=== PATIENT | male | born 1950 | race Caucasian/White ===

== ENCOUNTER 2024-07-08 06:24 | Day surgery (SDC) | payer OTHER, SELFPAY ==
[2024-06-07 09:11] LABS: Hematocrit 38.1 % (39.0-52.0); Hemoglobin 13.6 g/dL (13.0-18.0); Mean Corp Hgb Conc. 35.7 g/dL (33.0-37.0); Mean Corpuscular Hgb 30.8 pg (27.0-31.0); Mean Corpuscular Volume 86.2 fL (80.0-94.0); Mean Platelet Volume 9.7 fL (7.4-10.4); Platelet Count 220 10^3/uL (130-400); Red Blood Cell Count 4.42 10^6/uL (4.70-6.10); Red Cell Dist. Width 13.2 % (11.5-14.5); White Blood Cell Count 5.5 10^3/uL (4.8-10.8)
[2024-06-07 09:12] VITALS: BMI 28.4
[2024-06-07 09:30] LABS: ALT (SGPT) 38 U/L (0-50); AST (SGOT) 44 U/L (17-59); Albumin 4.2 g/dl (3.5-5.0); Alkaline Phosphatase 66 U/L (38-126); Blood Urea Nitrogen 19 mg/dl (9-20); Calcium 9.1 mg/dl (8.4-10.2); Carbon Dioxide 27 mmol/L (22-30); Chloride 100 mmol/L (98-107); Estimated Creatinine Clearance 60 ml/min; Glucose 105 mg/dl (70-99); Potassium 3.6 mmol/L (3.5-5.1); Sodium 140 mmol/L (135-145); Total Bilirubin 0.9 mg/dl (0.2-1.3); Total Protein 7.1 g/dl (6.3-8.2); eGFR > 60.00
[2024-06-07 12:20] LABS: Glycohemoglobin (HgbA1c) 5.5 % (4.0-5.6)
--- NOTE | 2024-06-25 15:43 | VNURNOTE ---
Patient is scheduled for an elective L ARAVIND on 07/08/24- he is a same day patient with Dr Qureshi. Spoke with patient prior to surgery. Introduced role of [facility] Liaison. Patient reports that he lives with his in a rancher home.
There are 2 steps to enter.
He has a cane and rolling walker.
He had VN services after his prior THR but was not same day surgery.
PCP is Dr Lexi Lund
Discussed [facility] joint protocol and post surgical plans.
Reviewed that he will have VN services initially and will then start outpatient PT.
Patient selects [facility]N for his home care needs and will go to [facility] for outpatient PT. Scheduled for 07/11.
Patient is in agreement with plan and states that his will be home with him. Advised to bring RW with him day of surgery. Referral placed in [facility].
Plan: [facility] per [facility] joint protocol then outpt PT on 07/11
[2024-07-02 08:53] VITALS: BMI 28.4
[2024-07-08] VITALS (11 sets, daily range): BP systolic 99–119; BP diastolic 58–81; PULSE 77; O2SAT 94
[2024-07-08] MEDS: TYLENOL 650 MG PO (09:22)
[2024-07-08] MEDS: CELEBREX 200 MG PO (09:22)
--- NOTE | 2024-07-08 12:15 | W.DS.TRANS ---
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
-
Discharge Instructions:
Sleep Apnea Risk Intermediate
Discharge Diagnosis/Procedures Left hip replacement
Diet As tolerated
Activity As tolerated,With Walker
Driving Restrictions No driving
Bathing Restrictions OK to Shower
Other Services PT
Wound Care Aquacel dressing in place 7 days then incision
open to air if no drainage (if drainage light
dressing until it resolves)
Instructions:
Stand-Alone Forms: SDS Total Hip and Knee D/C
Changes to Home Medications: Yes
Discharge Medications:
DC Medications w/original date entered in [facility]
ezetimibe 10 mg tablet (Zetia) 10 mg PO DAILY 07/02/24
hydrochlorothiazide 25 mg tablet 25 mg PO DAILY 07/02/24
mupirocin 2 % topical ointment 1 applic topical BID 07/02/24
nifedipine 60 mg tablet,extended release 60 mg PO DAILY 07/02/24
potassium chloride 10 mEq tablet,extended release 10 meq PO DAILY 07/02/24
rosuvastatin 40 mg tablet 40 mg PO DAILY 07/02/24
acetaminophen 500 mg capsule 1,000 mg (2 x 500 mg) PO Q6H PRN Pain #60 caps 07/08/24
aspirin 325 mg tablet 325 mg PO DAILY #30 tabs 07/08/24
aspirin 81 mg tablet,delayed release 81 mg PO DAILY 07/08/24
celecoxib 100 mg capsule (Celebrex) 100 mg PO BID #30 caps 07/08/24
dexamethasone 4 mg tablet 4 mg PO BID #7 tabs 07/08/24
docusate sodium 100 mg capsule (Colace) 100 mg PO BID #14 caps 07/08/24
ondansetron 4 mg disintegrating tablet 4 mg PO Q8H #14 tabs 07/08/24
oxycodone 5 mg tablet 5 mg PO Q6H PRN Pain #30 tabs 07/08/24
sennosides 8.6 mg tablet (Senokot) 8.6 mg PO BID PRN Constipation #14 tabs 07/08/24
Home Medication Changes
aspirin 325 mg tablet 325 mg PO DAILY #30 tabs 07/08/24
celecoxib 100 mg capsule (Celebrex) 100 mg PO BID #30 caps 07/08/24
dexamethasone 4 mg tablet 4 mg PO BID #7 tabs 07/08/24
docusate sodium 100 mg capsule (Colace) 100 mg PO BID #14 caps 07/08/24
ondansetron 4 mg disintegrating tablet 4 mg PO Q8H #14 tabs 07/08/24
oxycodone 5 mg tablet 5 mg PO Q6H PRN Pain #30 tabs 07/08/24
sennosides 8.6 mg tablet (Senokot) 8.6 mg PO BID PRN Constipation #14 tabs 07/08/24
Pending Results: No
[2024-07-08] MEDS: ANCEF 5 IV (14:26)
[2024-07-08] MEDS: CYKLOKAPRON 650 MG PO (15:03)
== END 2024-07-08 15:10 | disposition home or self-care (01) ==
LOC: SDS 06:24
PROVIDERS: ATTENDING PHYSICIAN Specialist; FAMILY PHYSICIAN Nurse Practitioner Adult Health; REFERRING PHYSICIAN Internal Medicine Cardiovascular Disease
DX: M16.12 Unilateral primary osteoarthritis, left hip (principal); I10 Essential (primary) hypertension; I35.0 Nonrheumatic aortic (valve) stenosis; E78.5 Hyperlipidemia, unspecified; M47.816 Spondylosis without myelopathy or radiculopathy, lumbar region; M17.12 Unilateral primary osteoarthritis, left knee; Z98.890 Other specified postprocedural states
CPT/HCPCS: 27130; 36415; 73502; 80053; 83036; 85027; 87070; 97162; C1713; C1776

== ENCOUNTER → 2025-01-10 09:07 | Outpatient (REF) | payer OTHER, SELFPAY | LOC: RAD 09:07 | PROVIDERS: ATTENDING PHYSICIAN Student in an Organized Health Care Education/Training Program; FAMILY PHYSICIAN Nurse Practitioner Adult Health | DX: I35.0 Nonrheumatic aortic (valve) stenosis (principal) | CPT/HCPCS: 74174; 75572; Q9967 ==

== ENCOUNTER 2025-01-17 07:32 | Day surgery (SDC) | payer OTHER, SELFPAY ==
[2025-01-17] VITALS (11 sets, daily range): BP systolic 103–123; BP diastolic 68–78; BMI 25.8
[2025-01-17] MEDS: NSS 218 ML IV (08:15)
--- NOTE | 2025-01-17 09:30 | ITS.CL.PN ---
[employer]ementer [employer]older - Procedure Note
Procedure
Procedure Note:
CARDIAC CATHETERIZATION REPORT
Date of Procedure: 01/17/2025
Referring: Dr. Joseph Walls DO
Indication: severe symptomatic aortic valve stenosis
PROCEDURE: coronary angiography
ACCESS: 6F right radial artery (closure: radial band)
CATHETERS
1. 6F JR4
2. 6F JL4
MODERATE SEDATION: 25 minutes of moderate sedation was utilized. An independent adjunct faculty for medical terminology was present to assist with and help manage the patient's level of consciousness and physiologic status.
HEMODYNAMIC DATA
AO 101/65 (mean 83) mmHg
CORONARY ANGIOGRAPHY
Dominance: left
LM: Large, normal
LAD: Large vessel giving rise to a moderate caliber branching diagonal and several small distal diagonal branches before wrapping around the apex. There are trivial luminal irregularities only.
LCx: Large vessel giving rise to a small OM1, large OM2, moderate caliber LPL branch, and moderate caliber LPDA. There are trivial luminal irregularities only.
RCA: Moderate caliber nondominant vessel with minimal disease.
RADIATION: dose 363 mGy; DAP 20.1 Gy*cm2; fluoroscopy time 3.7 min
CONCLUSION: coronary angiography demonstrates trivial luminal irregularities only in a left dominant system
RECOMMENDATION: proceed with workup for aortic valve replacement
Copy to: Dr. Joseph Walls DO (chief inspector); Lexi Anaya NP (PCP)
Signed: Dean Arreaga MD, PhD
== END 2025-01-17 12:20 | disposition home or self-care (01) ==
LOC: CATH 07:32
PROVIDERS: ATTENDING PHYSICIAN Student in an Organized Health Care Education/Training Program; FAMILY PHYSICIAN Nurse Practitioner Adult Health; OTHER PHYSICIAN Internal Medicine Cardiovascular Disease
DX: I35.0 Nonrheumatic aortic (valve) stenosis (principal); I10 Essential (primary) hypertension; E78.5 Hyperlipidemia, unspecified; Z79.82 Long term (current) use of aspirin
CPT/HCPCS: 99152; 99153; 93454; C1894; Q9967

== ENCOUNTER 2025-02-18 05:31 | Inpatient (IN) | payer OTHER, SELFPAY ==
[2025-02-10 08:31] VITALS: BMI 27.9
[2025-02-10 09:04] LABS: Urine Character Clear (Clear)
[2025-02-10 09:04] LABS: Hematocrit 40.7 % (39.0-52.0); Hemoglobin 14.1 g/dL (13.0-18.0); Mean Corp Hgb Conc. 34.6 g/dL (33.0-37.0); Mean Corpuscular Volume 91.1 fL (80.0-94.0); Nucleated Red Blood Cells % 0 % (-); Platelet Count 191 10^3/uL (130-400); Red Cell Dist. Width 13.7 % (11.5-14.5)
[2025-02-10 09:14] LABS: INR 0.96; PT 13.1 Sec (11.4-14.6)
[2025-02-10 09:15] LABS: Urine Red Blood Cell 0-2 /HPF (0-2); Urine Squamous Cell 0-2 /LPF (Few); Urine White Cell 0-2 /HPF (0-5)
[2025-02-10 09:52] LABS: ALT (SGPT) 41 U/L (0-50); AST (SGOT) 43 U/L (17-59); Albumin 4.4 g/dl (3.5-5.0); Alkaline Phosphatase 67 U/L (38-126); Blood Urea Nitrogen 23 mg/dl (9-20); Calcium 9.2 mg/dl (8.4-10.2); Carbon Dioxide 26 mmol/L (22-30); Chloride 106 mmol/L (98-107); Estimated Creatinine Clearance 62 ml/min; Glucose 116 mg/dl (70-99); Potassium 4.0 mmol/L (3.5-5.1); Sodium 139 mmol/L (135-145); Total Protein 7.7 g/dl (6.3-8.2); eGFR > 60.00
--- NOTE | 2025-02-10 10:10 | CM ---
Chart reviewed. Met with the patient in PAT. Reviewed preoperative and postoperative instructions and restrictions, along with showering guidelines. Gave patient TAVR Book. Patient is agreeable to a home visit by CT Transitional RN. Patient is
independent of ADLS, retired Executive Business Coach, lives with his in a 1 [address], 2 KIMMIE, 0 DME. Plan is for the patient to return home with CT Transitional RN.
[2025-02-10 10:19] LABS: Glycohemoglobin (HgbA1c) 5.5 % (4.0-5.6)
[2025-02-18] VITALS (16 sets, daily range): BP systolic 100–147; BP diastolic 62–107; BMI 27.2
--- NOTE | 2025-02-18 06:26 | W.CVOR.SURPR ---
CVOR Surgeon Immed Pre Op
-
I have examined this patient prior to performance of the scheduled procedure.
The patient's condition is unchanged from the time of the dictated/written History and
Physical and the patient is able to undergo the scheduled procedure.
--- NOTE | 2025-02-18 07:08 | PTCARENOTE ---
Pt. rec'd intro room 2257 from home for scheduled TAVR this AM, pt. AAOx3, VSS, NSR on the monitor. Pt. clipped and CHG wiped as per protocol, #20 G IV started in left wrist, ABO 2 drawn and sent. Verified with pt. that he showered x2 at home with
CHG soap, has been NPO since midnight, and that he took Aspirin 81 mg prior to arrival. Admission questions completed and med rec updated. Pt taken to laboratory equipment cleaner at 0630.
--- NOTE | 2025-02-18 09:06 | CM ---
pt in OR today, cm following.
--- NOTE | 2025-02-18 09:16 | W.IMMPOSTOP ---
Surgical Immed Post Op Note
-
[id number]
STRUCTURAL HEART PROCEDURE NOTE: TAVR
Preoperative Dx:
[id number] symptomatic aortic stenosis (P/M: 64/37, Top Lift Scourer 4.0m/s, NANCY 0.8)
Moderate aortic insufficiency
Mild MR
DJD/lumbar disk disease
Chronic lower back pain
BPH w/ urinary frequency
OA
Postoperative Dx:
Same
Procedures:
1) L RA access w/ U/S, tactile, and fluoroscopic guidance, micropuncture technique, 6Fr sheath placement
2) Pigtail placement
3) L CFV access w/ U/S and fluoroscopic guidance, long 6Fr sheath placement, placement of temporary RV pacing wire w/ threshold testing
4) L RIVET HEATER GAS access w/ U/S, tactile, and fluoroscopic guidance, seldinger technique, 5Fr sheath placement for arterial pressure monitoring
5) R RIVET HEATER GAS access w/ U/S, tactile, and fluoroscopic guidance, seldinger technique, 8Fr dilator placement
6) Perclose placement x 2 into R RIVET HEATER GAS w/ subsequent placement of 8Fr sheath
7) Limited aortography w/ confirmation of confirmation of co-planar valve deployment angles
8) Lunderquist wire purchase via R RIVET HEATER GAS access
9) Placement of Padron E-sheath via R RIVET HEATER GAS access - systemic heparinization
10) Wire purchase across stenotic AV (AL-1, soft-tip straight, LVEDP assessment (20mmHg), extra-stiff wire)
11) R TF TAVR w/ placement of 26mm AKIKO 3, RESILIA valve - aborted x 1 w/ pacing wire repositioning
12) Completion aortography
13) Completion TTE (no AI/PVL, mean gradient 5mmHg, no pericardial effusions, normal ventricular function)
14) Placement of long pigtail catheter in abdominal aorta via L RA access
15) Removal of [id number]-uhvcil/Padron E-sheath w/ R RIVET HEATER GAS mgmt w/ perclose sutures x 2; manual pressure
16) Completion R ileofemoral angiography
17) Removal of temporary pacing wire
18) Removal of L RIVET HEATER GAS 5Fr sheath w/ mgmt w/ 6Fr angioseal, manual pressure
19) Removal of L CFV 6Fr sheath w/ mgmt w/ manual pressure - protamine administration
20) Removal of L RA 6Fr sheath w/ mgmt w/ radial band placement
W[employer] Instructor:
Dr. Dean Arreaga
Cardiac Surgeon:
Dr. Naldo Moreno
Anesthesia:
MAC w/ local to B/L groins and L wrist
Implants:
Padron [employer]iences, 26mm AKIKO 3 RESILIA, SN [id number]
Perclose x 2 to R RIVET HEATER GAS
6Fr angioseal to L RIVET HEATER GAS
Complications:
None
Cath Data:
Start: 0748hrs, Deploy: 0843hrs, End: 0912hrs
FT: 18.7min, mGy: 505, DAP: 40.1, Contrast: 72mL
Post-TTE: No AI/PVL, mean gradient 5mmHg
Condition:
Stable/guarded to recovery
--- NOTE | 2025-02-18 09:21 | ITS.CL.PN ---
[employer] Cell [employer]er - Procedure Note
Procedure
Procedure Note:
TRANSCATHETER AORTIC VALVE REPLACEMENT REPORT
Date of Procedure: 02/18/2025
Referring: Dr. Joseph Walls
Indication: symptomatic severe aortic valve stenosis
Operators: Dean Arreaga MD, PhD (interventional cardiology); Dr. Naldo Moreno MD (CT surgery)
Anesthesia: conscious sedation provided by the anesthesia staff
PROCEDURE: transfemoral, transcatheter aortic valve replacement with a Padron Maria De Jesus S3 Ultra Resilia 26 mm valve
ACCESS:
1. 6F left femoral vein (closure: manual hemostasis) - Ultrasound was utilized for vascular access. The vessel was visualized under ultrasound and noted to be patent. An image of the vessel was stored permanently in the patient's medical record.
Under direct ultrasound guidance, vascular access was obtained using a modified Seldinger technique and a 6 [place] Verdean sheath was placed.
2. 6F left common femoral artery (closure: Angioseal) - Ultrasound was utilized for vascular access. The vessel was visualized under ultrasound and noted to be patent. An image of the vessel was stored permanently in the patient's medical record.
Under direct ultrasound guidance, vascular access was obtained using a modified Seldinger technique and a 5 [place] Verdean sheath was placed.
3. 6F left radial artery (closure: radial band) - Ultrasound was utilized for vascular access. The vessel was visualized under ultrasound and noted to be patent. An image of the vessel was stored permanently in the patient's medical record. Under
direct ultrasound guidance, vascular access was obtained using a modified Seldinger technique and a 6 [place] Verdean sheath was placed.
4. 14F right common femoral artery (closure: Perclose x2) - Ultrasound was utilized for vascular access. The vessel was visualized under ultrasound and noted to be patent. An image of the vessel was stored permanently in the patient's medical
record. Under direct ultrasound guidance, vascular access was obtained using a modified Seldinger technique and a 8 [place] Verdean sheath was placed.
HEMODYNAMIC DATA
LVEDP 20 mmHg
PROCEDURE NARRATIVE:
The patient was prepped and draped in standard sterile fashion. Conscious sedation was provided by the anesthesia staff. 6F left femoral vein, 5F left common femoral artery, and 6F left radial artery access were obtained with ultrasound guidance. A
temporary venous pacing wire was advanced via the left femoral vein to the right ventricle under fluoroscopic guidance with appropriate capture verified. A 5F pigtail catheter was advanced via the left radial artery and seated in the non coronary
cusp. Angiography was performed to verify the co-planar angle.
8F right common femoral artery access was obtained with ultrasound guidance using micropuncture technique with verification of appropriate arteriotomy location via hand injection angiography. The arteriotomy was preclosed with two Perclose sutures
followed by replacement of the 8F sheath. Using an AL1 catheter, a Lunderquist wire was placed in the descending thoracic aorta with observation of significant straightening of the previously tortousous iliofemoral system. The 8F sheath was removed
and the 14F Padron E-sheath was inserted over the Lunderquist wire and into the descending aorta. Heparin 6000 units was given. The AL1 catheter was re-advanced through the E-sheath to the level of the ascending aorta. The Lunderquist wire was
exchanged for a soft tipped straight wire which was used to cross the aortic valve and deposit the AL1 in the LV apex. A J-wire was used to exchange the AL1 for a pigtail catheter in the LV and LVEDP was measured. An Amplatz Extrastiff wire with
curved proximal end was advanced through the pigtail catheter and seated in the LV apex. ACT was checked and confirmed to be >300 seconds.
The valve was brought to the table with orientation and deployment contrast volume verified. The valve was advanced over the Extrastiff wire and into the descending aorta. The balloon was withdrawn, and the valve was mounted on the balloon. The
valve was advanced over the aortic arch and into the aortic valve annulus. The pusher device was withdrawn. Low volume aortography confirmed valve positioning. On initial valve deployment attempt, loss of capture was observed before valve inflation.
The pacing wire was reposition and a rapid pacing run at 200 bpm was performed without attempted valve deployment to ensure no pacing issues. The valve was then deployed during rapid ventricular pacing with 90/10 positioning and full angiographic
expansion. The balloon was walked back to the descending aorta while leaving the wire in place. The patient was resuscitated by anesthesia with recovery of adequate blood pressure. Telemetry demonstrating sinus rhythm with no heart block.
Aortography demonstrated good valve positioning, adequate coronary filling, and mild wire associated aortic valve insufficiency. The wire was removed and echocardiography demonstrate no aortic insufficiency. Mean valve gradient was 5 mmHg. The valve
deployment system was removed.
The Padron E sheath was removed, and hemostasis obtained with the two Perclose sutures. Protamine 30 mg was given. Aortoiliac angiography from the left radial artery demonstrated no evidence of iliofemoral dissection/perforation and good runoff
below the common femoral artery bilaterally. The pacemaker and the pigtail catheter were removed. The left femoral artery sheath was removed using a 6F Angioseal. The left femoral venous sheath was removed with manual pressure. The radial artery was
closed with a radial band.
RADIATION: dose 505 mGy; DAP 40.1 Gy*cm2; fluoroscopy time 18.7 min
CONCLUSION: successful placement of an Padron Maria De Jesus S3 Ultra Resilia 26 mm transcatheter aortic valve via right transfemoral approach with no acute complications
Copy to: Dr. Joseph Walls DO (drafter geological); Hola Felix NP (PCP)
Signed: Dean Arreaga MD, PhD
--- NOTE | 2025-02-18 10:15 | PTCARENOTE ---
Patient received from PACU, AO x 3, sleepy but arousable. B/L femoral sites CDI, +1 DP and left radial band intact with 9 cc of air. HOB flat until 1320. SB HR 58, BP 109/66, POX 96% on 2 liters NC. Denies pain, call otero in reach
[2025-02-18 11:40] LABS: ACT-LR - POC > 397 Seconds (116-155)
--- NOTE | 2025-02-18 14:13 | PTCARENOTE ---
Patient out of bed, walked to the bathroom, voided. In chair eating lunch. Femoral sites and left radial sites CDI, VSS, call otero in reach
[2025-02-18] MEDS: ANCEF 5 IV (17:53)
--- NOTE | 2025-02-18 19:23 | PTCARENOTE ---
Patient with no complaints. Walking in room. B/L femoral sites CDI. Left radial site dressing dry. Denies pain. SR HR 70's, call otero in reach
--- NOTE | 2025-02-18 23:57 | PTCARENOTE ---
Received patient at change of shift. SR on the monitor, HR in the 70. Bilateral groin dressings CDI, soft. Pt ambulating in room. No complaints from pt at this time, call otero within reach.
[2025-02-19 04:18] VITALS: BP 127/75
[2025-02-19 04:36] VITALS: BMI 27.6
--- NOTE | 2025-02-19 05:04 | W.PN.CT ---
Addendum entered and electronically signed by SHIRLEY Robertson 02/20/25 10:51:
CDI QUERY RESPONSE
K+ 3.1>Hypokalemia
Addendum entered and electronically signed by Naldo Moreno MD 02/19/25 07:48:
I saw and examined the patient.
The PA's note was reviewed and I agree with the note.
Comment:
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 OOB, ambulating.
Check echocardiogram
D/C planning for hopefully home later today
Original Note:
Today's Communication / Plan
-
-pod #1
-no issues overnight
-nsr 70s overnight. No abhay or pauses
-ECG without change from preop
-LVEDP 20- on HCTZ 25 qd
-labs pending
-Echo today
-current meds (ASA, Crestor, Zetia, HCTZ, KCL, Procardia)
-encourage IS, ambulate
-possible d/c
Assessment / Plan
-
- Clooclfl-wi-qujmyn symptomatic aortic stenosis /Moderate AI- s/p R TF TAVR w/ placement of 26mm AKIKO 3, RESILIA valve - aborted x 1 w/ pacing wire repositioning on 02/18/25, pod #1
- Post-TTE: No AI/PVL, mean gradient 5mmHg
- Acute on chronic diastolic CHF, LVEDP 20mmHg
- Mild MR
- DJD/lumbar disk disease
- Chronic lower back pain
- BPH w/ urinary frequency
- OA
- HTN/HLD
- 2014
- L TKR
- L THR
- Diverticulosis
- Nonsmoker
Discussed patient care with: Nursing and Care Team
Subjective
-
Date of Service: February 19, 2025
Objective Data
-
PT 13.1 Sec (11.4-14.6) 02/10/25 08:40
INR 0.96 02/10/25 08:40
Vital Signs
Vital Signs
Temp Pulse Resp BP Pulse Ox
98.3 F 72 18 118/74 96
02/18/25 22:20 02/19/25 00:15 02/18/25 22:20 02/18/25 22:26 02/18/25 22:20
SaO2: 96
Physical Exam
-
General: Awake and AOx3
Cardiovascular: Regular rate & rhythm, No Murmurs (no JVD b/l) and No Rub
Respiratory: Clear
Incision: Other (groins are cdi, soft, nontender, no hematoma b/l)
Extremities: No Edema (2+ DPs b/l)
Abdomen: soft, nontender, nondistended, + bowel sounds
Data Reviewed
-
Lab Results: Results Reviewed
Medications: Active Meds Reviewed
Chest X-Ray: Report Reviewed and Image Reviewed
ECG: Report Reviewed and Image Reviewed
[2025-02-19 05:06] LABS: Hematocrit 35.7 % (39.0-52.0); Hemoglobin 12.5 g/dL (13.0-18.0); Mean Corp Hgb Conc. 35.0 g/dL (33.0-37.0); Mean Corpuscular Volume 89.9 fL (80.0-94.0); Platelet Count 157 10^3/uL (130-400); Red Cell Dist. Width 13.2 % (11.5-14.5)
[2025-02-19 05:31] LABS: Blood Urea Nitrogen 23 mg/dl (9-20); Calcium 8.7 mg/dl (8.4-10.2); Carbon Dioxide 26 mmol/L (22-30); Chloride 109 mmol/L (98-107); Estimated Creatinine Clearance 70 ml/min; Glucose 110 mg/dl (70-99); Potassium 3.1 mmol/L (3.5-5.1); Sodium 137 mmol/L (135-145); eGFR > 60.00
[2025-02-19] MEDS: KCL 40 MEQ PO (05:48)
--- NOTE | 2025-02-19 07:40 | W.PN.ANS.POP ---
Anesthesia Post Operative
- Anesthesia Post Op Note
Vital Signs Stable-See Nursing Note: Yes
Airway Patent: Yes
Adequate Pain Control: Yes
Change in Mental Status: No
Current Postoperative Nausea & Vomiting: No
Anesthesia Complications: No
General Anesthetic Recall: No
Unplanned Admission: No
Post Op Hydration Adequate: Yes
[2025-02-19 08:09] VITALS: BP 132/77
[2025-02-19] MEDS: ASPIR LOW (ENTERIC COATED) 81 MG PO (09:27)
[2025-02-19] MEDS: PROCARDIA XL (EXTENDED RELEASE) 60 MG PO (09:28)
[2025-02-19] MEDS: ORETIC 25 MG PO (09:28)
[2025-02-19] MEDS: ZETIA 10 MG PO (09:28)
[2025-02-19] MEDS: CRESTOR 40 MG PO (09:28)
[2025-02-19] MEDS: FLUSH (NSS) 1 FLUSH IV (09:28)
--- NOTE | 2025-02-19 09:57 | PTCARENOTE ---
Received patient this morning ambulating in his room, offers no complaints, groin and wrist sites are dry and intact. Echo done, patient seen by cardiology, patient anticipating discharge home.
--- NOTE | 2025-02-19 10:10 | W.PN.CD ---
Today's Communication / Plan
-
Echo pending then d/c
Impression / Plan
-
A/P: 74 yo male with hx of HTN, HLD, severe now s/p TAVR February 18.
Severe s/p TAVR
- echo pending
-likely d/c after
HTN
- restart meds
HLD:
- cont meds
Subjective: Feeling good no complaints
Physical Exam
Vital Signs/Labs
Vital Signs
Temp Pulse Resp BP Pulse Ox
98.3 F 75 18 132/77 98
02/19/25 08:09 02/19/25 08:15 02/19/25 08:09 02/19/25 08:09 02/19/25 08:09
02/18/25 02/19/25 02/20/25
06:59 06:59 06:59
Actual Weight 158 lb 1.143 oz 160 lb 7.944 oz
02/19/25 04:31
02/19/25 04:31
PT 13.1 Sec (11.4-14.6) 02/10/25 08:40
INR 0.96 02/10/25 08:40
02/10/25
08:40
Alk-E-Zezsgujtgzb Pept 133
Physical Exam
Constitutional: No acute distress and Comfortable
EENT: Anicteric
Cardiovascular: Rhythm & rate is regular
Respiratory: Respiratory effort normal and Lungs clear to auscul.
GI: Soft
Neuro/Psych: AO x 3
Data Reviewed
-
Date of Service: February 19, 2025
Medical Decision Making: Reviewed Test Results
EKG: Tracing Personally Visualized and interpreted (sr)
Echo: Tracing Personally Visualized and interpreted
[2025-02-19 10:22] VITALS: BP 126/70
[2025-02-19 10:28] VITALS: BP 144/78
[2025-02-19 11:15] VITALS: BP 126/70; BP 144/78; PULSE 72; O2SAT 100; O2SAT 99
--- NOTE | 2025-02-19 11:29 | PN.CDI ---
CDI
- -
CDI:
Physician Documentation Request
Admit Date: 02/18/25 05:31
Dear Doctor /CVPA,
Please review the following and provide your response in the progress notes.
Clinical Indicators:
Pt admitted with aortic Stenosis for TAVR done on 02/18
Potassium level 02/19 3.1/Per MAr pt did get 40 MEQ PO KCL on 02/19/ !0 MEQ PO daily per home meds continued
Based on the above, could you clarify in the progress notes, the appropriate diagnosis, if significant, that supports the above abnormalities and additional evaluation, monitoring and/or treatment rendered:
Hypokalemia
Abnormal lab value
Other ( please specify)
Use of terms such as suspected, likely, concern for, or probable (associated with a specific diagnosis that is being evaluated, monitored, or treated as if it exists) are acceptable and can be coded in the inpatient setting, when documented at the
time of discharge.
Thank you,
Dee Shea RN
CDI Specialist
[facility]
Please use your independent medical judgment in providing your response.
[2025-02-19 11:37] VITALS: BP 112/77
--- NOTE | 2025-02-19 12:19 | PTCARENOTE ---
Reviewed discharge instructions with the patient and he states his understanding. Patient is aware of need to make an appointment for follow up echo prior to cardiology visit. Bilateral groin dressing and left radial dressings are dry and intact,
patient will remove and shower tonight. Patient discharged home with his .
== END 2025-02-19 12:34 | disposition home or self-care (01) | DRG 266 ==
LOC: IVU 05:31
PROVIDERS: Physician Assistant Medical; ADMITTING PHYSICIAN Thoracic Surgery (Cardiothoracic Vascular Surgery); CONSULT PHYSICIAN Student in an Organized Health Care Education/Training Program; FAMILY PHYSICIAN Internal Medicine; REFERRING PHYSICIAN Internal Medicine Cardiovascular Disease
PROC: 02RF38Z Replacement of Aortic Valve with Zooplastic Tissue, Percutaneous Approach (ICD-10-PCS; 2025-02-18)
DX: I35.2 Nonrheumatic aortic (valve) stenosis with insufficiency (principal); I50.33 Acute on chronic diastolic (congestive) heart failure; I34.0 Nonrheumatic mitral (valve) insufficiency; I11.0 Hypertensive heart disease with heart failure; E78.5 Hyperlipidemia, unspecified; E87.6 Hypokalemia; M51.9 Unspecified thoracic, thoracolumbar and lumbosacral intervertebral disc disorder; G89.29 Other chronic pain; N40.1 Benign prostatic hyperplasia with lower urinary tract symptoms; R35.0 Frequency of micturition
CPT/HCPCS: 33361; 36415; 71045; 71046; 80048; 80053; 81003; 81015; 82248; 83036; 83880; 85025; 85027; 85347; 85610; 86850; 86900; 86901; 86920; 87070; 93005; 93308; 93321; 93325; C1760; C1769; C1894; Q9967

== ENCOUNTER → 2025-03-18 08:07 | Outpatient (REF) | payer OTHER, SELFPAY | LOC: RAD 08:07 | PROVIDERS: ATTENDING PHYSICIAN Internal Medicine | DX: M89.8X9 Other specified disorders of bone, unspecified site (principal) | CPT/HCPCS: 78803; A9503 ==

== ENCOUNTER 2025-07-21 06:41 | Day surgery (SDC) | payer OTHER, SELFPAY ==
[2025-07-01 08:40] LABS: Hematocrit 41.1 % (39.0-52.0); Hemoglobin 14.3 g/dL (13.0-18.0); Mean Corp Hgb Conc. 34.8 g/dL (33.0-37.0); Mean Corpuscular Volume 89.9 fL (80.0-94.0); Platelet Count 209 10^3/uL (130-400); Red Cell Dist. Width 13.1 % (11.5-14.5)
[2025-07-01 09:04] LABS: Blood Urea Nitrogen 20 mg/dl (9-20); Calcium 9.3 mg/dl (8.4-10.2); Carbon Dioxide 31 mmol/L (22-30); Chloride 100 mmol/L (98-107); Glucose 116 mg/dl (70-99); Potassium 4.6 mmol/L (3.5-5.1); Sodium 136 mmol/L (135-145); eGFR > 60.00
[2025-07-02 14:50] VITALS: BMI 27.1
[2025-07-21] VITALS (7 sets, daily range): BP systolic 97–116; BP diastolic 53–72; BMI 27.1
[2025-07-21] MEDS: TYLENOL 1000 MG PO (08:45)
[2025-07-21] MEDS: NORMOSOL-R/PLASMALYTE-A 1000 IV (08:46)
--- NOTE | 2025-07-21 09:01 | HP.FOC2 ---
Focused History & Physical
Chief Complaint
HPI:
Chief Complaint: Right inguinal hernia
HPI / Indication for Planned Procedure: Patient is a 75-year-old male recently seen in outpatient surgical evaluation secondary to a few month history of intermittent swelling and discomfort in the right inguinal region. Physical examination
confirmed the presence of a reducible right inguinal hernia. After discussions regarding treatment options patient wished to pursue operative repair presents today for scheduled operative correction.
Relevant Past Medical History: Other (Hypertension, hyperlipidemia, history of now status post TAVR, mild MR, DJD with lumbar disc disease, BPH with urinary frequency, osteoarthritis)
Relevant Social History: Negative
Relevant Family History: Negative
Relevant Past Surgical History: Positive for (Left total knee, left total hip, cardiac catheterization, TAVR, lumbar laminectomy, ex lap for small bowel obstruction)
Review of Systems
Review of Pertinent Systems: All Systems Negative
Medication
See Medication form for detailed medications: Yes
Medication List (including Herbals & OTC):
ezetimibe 10 mg tablet (Zetia) 10 mg PO DAILY 07/02/24
hydrochlorothiazide 25 mg tablet 25 mg PO DAILY 07/02/24
nifedipine 60 mg tablet,extended release 60 mg PO DAILY 07/02/24
potassium chloride 10 mEq tablet,extended release 10 meq PO DAILY 07/02/24
aspirin 81 mg tablet,delayed release 81 mg PO DAILY 07/08/24
rosuvastatin 40 mg tablet 40 mg PO DAILY 01/17/25
acetaminophen 325 mg tablet (Tylenol) 650 mg PO Q4H PRN pain 07/14/25
ibuprofen 200 mg capsule 400 mg PO Q6H PRN pain 07/14/25
Medications Reviewed: Yes
Allergies and Reactions
Patient has Allergies: Yes
Noted Allergies and Reactions:
Allergy/AdvReac Type Severity Reaction Status Date / Time
hydromorphone (From Dilaudid) Allergy Anaphylaxis Verified 07/21/25 08:28
Pertinent Physical Exam
All Other Systems: Negative
Head/Neck: Normal
Lungs: Normal
Heart: Normal
Abdomen: Other (Reducible right inguinal hernia, upper midline laparotomy surgical scar)
Extremities: Normal
Neurological: Normal
Diagnosis / Assessment
75-year-old male presenting for repair symptomatic right inguinal hernia
Plan / Procedure
Laparoscopic TEP repair right inguinal hernia with mesh
Anesthesia/Sedation to be done by Anesthesia Provider: Yes
--- NOTE | 2025-07-21 09:05 | W.SUR.PREOP ---
Pre-Operative Surgical Note
-
I have examined this patient prior to the performance of the scheduled procedure.
The patient's condition is unchanged from the time of the current History and
Physical and the patient is able to undergo the scheduled procedure.
--- NOTE | 2025-07-21 10:48 | W.IMMPOSTOP ---
Addendum entered and electronically signed by Dale Prakash MD 07/21/25 11:00:
#[id number]
Original Note:
Surgical Immed Post Op Note
-
Primary Surgeon: Dale Prakash MD
Assisting Surgeon: Nirali Arreaga PA-C
Pre-op Diagnosis: Right inguinal hernia
Post-op Diagnosis: Right inguinal hernia-indirect
Procedure Performed: Laparoscopic TEP repair right inguinal hernia with mesh; 3D max large mid weight
Anesthesia Type: GETA +0.25% Marcaine with epinephrine
Specimen / Cultures: None
Estimated Blood Loss: 6 mL
Complications: None immediate
Operative Findings: Right indirect inguinal hernia. Direct and femoral locations normal. No lipoma of spermatic cord identified. 3D max large mid weight mesh repair. No peritoneal entry during dissection.
The assistance of Nirali Arreaga PA-C was required due to the complexity of the procedure. During the procedure Nirali Arreaga PA-C assisted with trocar placement, managing the laparoscope for visualization, retraction and closure of the surgical
incision sites. I was present for the entirety of the operative procedure.
== END 2025-07-21 12:21 | disposition home or self-care (01) ==
LOC: SDS 06:41
PROVIDERS: ATTENDING PHYSICIAN Surgery; FAMILY PHYSICIAN Internal Medicine; OTHER PHYSICIAN Internal Medicine Cardiovascular Disease
DX: K40.90 Unilateral inguinal hernia, without obstruction or gangrene, not specified as recurrent (principal)
CPT/HCPCS: 49650; 80048; 85027; 93005; C1781